=== PATIENT | male | born 2000 | race African-American/Black ===

== ENCOUNTER 2024-08-22 18:40 | Emergency (ER) | payer OTHER, SELFPAY ==
[2024-08-22 18:42] VITALS: RESP 14; BMI 22.2
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
[2024-08-22 19:07] LABS: MANUAL DIFF FLAG NO
[2024-08-22 19:23] LABS: Alanine Aminotransferase 14 U/L (0-40); Albumin Level 4.7 g/dL (3.5-5.0); Alkaline Phosphatase 49 U/L (39-117); Anion Gap 12 (12-20); Aspartate Amino Transferase 18 U/L (5-37); Blood Urea Nitrogen 12 mg/dL (9-16); Calcium 9.1 mg/dL (8.4-10.2); Carbon Dioxide 25 mmol/L (22-29); Chloride 109 mmol/L (96-108); Creatinine Clr Calc Pharmacy 87.9; Estimated Glomerular Filt Rate > 60; Potassium 3.7 mmol/L (3.3-5.1); Sodium 142 mmol/L (135-145); Total Protein 7.2 g/dL (6.5-8.0)
[2024-08-22 19:27] LABS: Hematocrit 39.8 % (42.0-52.0); Hemoglobin 13.8 g/dl (14.0-18.0); Imm Gran Abs Auto 0.01 X10*3/uL (0.00-0.03); Imm Gran Pct Auto 0.2 % (0.0-0.4); Lymphocytes Absolute Auto 2.6 X10*3/uL (1.2-4.9); Mean Corpuscular HGB Conc 34.7 g/dl (31.0-36.0); Mean Corpuscular Hemoglobin 28.0 pg (27.0-33.0); Mean Corpuscular Volume 80.9 fL (80.0-98.0); NRBC Abs Auto 0.000 X10*3/uL (0.0-0.012); NRBC Pct Auto 0.0 /100WBC (0.0-0.2); Platelet Count 313 X10*3/uL (160-400); Red Blood Count 4.92 X10*6/uL (4.60-5.80); White Blood Count 5.3 X10*3/uL (4.8-10.8)
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
[2024-08-22 19:56] LABS: Appearance Urine Clear; Glucose Urine UA Negative (Negative); PH 7.5 (5.0-9.0); Specific Gravity - Urine 1.025 (1.005-1.025)
[2024-08-22 20:06] LABS: Cannabinoid Screen Urine POSITIVE (Not Detect)
[2024-08-22] MEDS: Diphth,Pertus(ACell),Tet Adult 0.5 ML SYRINGE IM (20:42)
[2024-08-22 20:47] VITALS: BP 120/70; PULSE 80; RESP 16; TEMP 37.1; O2SAT 98
--- NOTE | 2024-08-23 08:45 | MHC.CARE ---
[facility] REFERRAL COMPLETE
== END 2024-08-22 20:52 | disposition home or self-care (01) ==
PROVIDERS: Emergency Provider Emergency Medicine; PCP Specialist
DX: F31.9 Bipolar disorder, unspecified (principal); S01.81XA Laceration without foreign body of other part of head, initial encounter; X78.8XXA Intentional self-harm by other sharp object, initial encounter; R45.851 Suicidal ideations; Y93.89 Activity, other specified; Y92.143 Cell of prison as the place of occurrence of the external cause; Y99.9 Unspecified external cause status; Z23 Encounter for immunization
CPT/HCPCS: 36415; 80053; 80307; 81003; 85025; 90471; 90715; 99284; S9485